=== PATIENT | male | born 1985 | race African-American/Black ===

== ENCOUNTER 2021-09-16 08:00 | Outpatient (CLI) | payer SELFPAY ==
[2021-09-16 22:57] LABS: CHLAMYDIA TRACHOMATIS DNA NEGATIVE (NEGATIVE); NEISSERIA GONORRHOEAE DNA NEGATIVE (NEGATIVE)
== END 2021-09-16 23:59 ==
LOC: LAB.N 08:00
PROVIDERS: ATTEND Nurse Practitioner
DX: R36.9 Urethral discharge, unspecified (principal)
CPT/HCPCS: 87491; 87591; 87661